=== PATIENT | female | born 1930 | race Caucasian/White ===

== ENCOUNTER 2017-07-13 14:13 | Emergency (ER) | payer MEDICARE, OTHER ==
[2017-07-13] MEDS ORDERED: Sodium Chloride 0.9% 10 ML Syringe FLUSH PRN (15:08)
[2017-07-13] MEDS ORDERED: Albuterol 0.083% 2.5 MG/3 ML Neb Soln NEB ONE (15:10)
--- NOTE | 2017-07-13 15:10 | EDM.PDOC ---
ED HPI GENERAL MEDICAL PROBLEM - General Chief Complaint: Respiratory Problem Stated Complaint: SOB, COUGH AND FEVER Time Seen by Provider: 07/13/17 15:00 Source of Information: Reports: Patient History Limitations: Reports: No Limitations - History of Present Illness INITIAL COMMENTS - FREE TEXT/NARRATIVE: 87 year old female presents for evaluation and treatment of chills, shortness of breath, cough and a fever. Symptoms started on Friday. Patient presented to the walk-in clinic today where she was instructed to come to us for further management and care. Reports she had a fever of 101.8 at the clinic and oxygen sats at 87% on room air. Current symptoms include fevers, chills, sore throat, headaches, cough and shortness of breath. Reports she is coughing up white sputum. No chest pain, ear pain, nausea or vomiting. Patient is visiting [place] from [place]. She will be here for the next week. No ill contacts. Patient reports she frequently gets bronchitis. Often treated with amoxicillin and steroids. Patient has an albuterol inhaler at home but did not bring it with her today. - Related Data Allergies Allergy/AdvReac Type Severity Reaction Status Date / Time Sulfa (Sulfonamide Allergy Cannot Verified 07/13/17 14:29 Antibiotics) Remember Home Meds: Home Meds Aspirin [Halfprin] 81 mg PO DAILY 07/13/17 [History] Biotin/Calcium Carbonate [Biotin 800 MCG] 1 tab PO DAILY 07/13/17 [History] Calcium Carbonate/Vitamin D3 [Calcium 1,000 + D3 Caplet] 1,200 mg PO DAILY 07/13 [History] Levothyroxine 75 mcg PO DAILY 07/13/17 [History] Metoprolol Succinate [Toprol XL] 50 mg PO DAILY 07/13/17 [History] Raloxifene HCl [Evista] 60 mg PO DAILY 07/13/17 [History] ED ROS GENERAL - Review of Systems Review Of Systems: See Below Constitutional: Reports: Fever, Chills, Weakness HEENT: Reports: Throat Pain. Denies: Ear Pain Respiratory: Reports: Shortness of Breath, Cough, Sputum Cardiovascular: Denies: Chest Pain GI/Abdominal: Denies: Nausea, Vomiting ED EXAM, GENERAL - Physical Exam Exam: See Below Exam Limited By: No Limitations General Appearance: Alert, WD/WN, No Apparent Distress Ears: Normal External Exam, Normal Canal, Hearing Grossly Normal, Normal TMs Nose: Normal Inspection Throat/Mouth: Normal Inspection, Normal Lips, Normal Oropharynx, Normal Voice, No Airway Compromise Neck: Normal Inspection Respiratory/Chest: No Respiratory Distress, Wheezing (diffuse expiratory). No: Rhonchi Cardiovascular: Normal Peripheral Pulses, Regular Rate, Rhythm, No Murmur Neurological: Alert, Oriented, Normal Cognition Psychiatric: Normal Affect, Normal Mood Skin Exam: Warm, Dry, Normal Color Course - Vital Signs Last Recorded V/S: Last Vital Signs Temp 36.7 C 07/13/17 14:20 Pulse 92 07/13/17 18:30 Resp 18 07/13/17 18:30 BP 154/65 H 07/13/17 18:30 Pulse Ox 90 L 07/13/17 18:30 - Orders/Labs/Meds Labs: Laboratory Tests 07/13/17 07/13/17 07/13/17 Range/Units 15:35 15:35 15:35 WBC 10.41 H (3.98-10.04) K/mm3 RBC 4.65 (3.98-5.22) M/mm3 Hgb 13.2 (11.2-15.7) gm/L Hct 39.3 (34.1-44.9) % MCV 84.5 (79.4-94.8) fl MCH 28.4 (25.6-32.2) pg MCHC 33.6 (32.2-35.5) g/dl RDW Std Deviation 41.7 (36.4-46.3) fL Plt Count 224 (182-369) K/mm3 MPV 10.7 (9.4-12.3) fl Neutrophils % (Manual) 71 H (40-60) % Band Neutrophils % 0 (0-10) % Lymphocytes % (Manual) 20 (20-40) % Atypical Lymphs % 0 % Monocytes % (Manual) 7 (2-10) % Eosinophils % (Manual) 2 (0.7-5.8) % Basophils % (Manual) 0 L (0.1-1.2) Platelet Estimate Adequate Plt Morphology Comment Normal RBC Morph Comment Normal Sodium 134 L (136-145) mEq/L Potassium 3.8 (3.5-5.1) mEq/L Chloride 96 L (98-107) mEq/L Carbon Dioxide 26 (21-32) mEq/L Anion Gap 15.8 H (5-15) BUN 13 (7-18) mg/dL Creatinine 0.7 (0.55-1.02) mg/dL Est Cr Clr Drug Dosing 35.85 mL/min Estimated GFR (MDRD) > 60 (>60) mL/min BUN/Creatinine Ratio 18.6 H (14-18) Glucose 94 (83-115) mg/dL Lactic Acid 1.7 (0.4-2.0) mmol/L Calcium 8.7 (8.5-10.1) mg/dL Total Bilirubin 1.2 H (0.2-1.0) mg/dL AST 26 (15-37) U/L ALT 16 (14-59) U/L Alkaline Phosphatase 49 (46-116) U/L C-Reactive Protein 4.4 H* (<1.0) mg/dL Total Protein 7.0 (6.4-8.2) g/dl Albumin 3.4 (3.4-5.0) g/dl Globulin 3.6 gm/dL Albumin/Globulin Ratio 0.9 L (1-2) Meds: Medications Discontinued Medications Generic Name Dose Route Start Last Admin Trade Name Freq PRN Reason Stop Dose Admin Albuterol 2.5 mg 07/13/17 15:10 07/13/17 15:59 Proventil Neb Soln NEB 07/13/17 15:11 2.5 mg ONETIME ONE Administration Sodium Chloride 10 ml 07/13/17 15:08 Saline Flush FLUSH ASDIRECTED PRN Keep Vein Open - Radiology Interpretation Free Text/Narrative:: Chest xray shows emphysematous changes. No acute infiltrate. Reviewed by myself and Dr. Monaco. - Re-Assessments/Exams Free Text/Narrative Re-Assessment/Exam: 07/13/17 18:46 I reviewed the xray and labs results with the patient. She is negative for influenza. She is staying here in town. I feel we can try out patinet treatment with antibiotics, albuterol and steroids. She is instructed to return to the ER if her symptoms change or worsen. She agrees with this treatment plan. Departure - Departure Time of Disposition: 18:14 Disposition: Home, Self-Care 01 Condition: Fair Clinical Impression: Bronchitis - Discharge Information Instructions: Acute Bronchitis, [id number] Referrals: PCP,None [Primary Care Provider] - Forms: ED Department Discharge Additional Instructions: Take the doxycycline as prescribed. 1 tab twice a day for 10 days. Prednisone 1 tab daily for 5 days. you will have 5 extra tabs Tessalon Perles 1 tab every 8 hours as needed for cough. Albuterol inhaler 1-2 puffs every 4-6 hours as needed for shortness of breath. rest. make sure you are drinking plenty of fluids. Follow up with your family care provider as soon as you are able to. Please return to the ER immediately if your symptoms change or worsen. Prescriptions given through [facility]. Doxycycline 100 mg twice a day 10 days Albuterol inhaler 1-2 puffs every 4-6 hours as needed for shortness of breath Tessalon Perles 1 cap 3 times a day as needed for cough Prednisone 20mg 1 tab daily for 5 days.
--- NOTE | 2017-07-14 07:14 | CR ---
Chest: Two views of the chest were obtained. Comparison: No previous study. Heart size is normal. Tortuous thoracic aorta is seen. No acute infiltrates are suspected. Lungs are hyperinflated compatible with emphysematous change. Mild compression deformity is seen within the mid to upper thoracic spine which is most likely old. Scoliosis is also present within the spine. Impression: 1. Emphysematous change. Mild compression deformity within the mid to upper thoracic spine. 2. Nothing acute is suspected on two-view chest x-ray. Diagnostic code #2
== END 2017-07-13 18:30 | disposition home or self-care (01) ==
LOC: JD.ED 14:13
DX: J40 Bronchitis, not specified as acute or chronic (principal); Z88.2 Allergy status to sulfonamides; Z79.82 Long term (current) use of aspirin; Z79.899 Other long term (current) drug therapy
CPT/HCPCS: 36415; 71020; 71020-26; 80053; 83605; 85025; 86140; 87040; 87070; 87205; 87804; 94640; 99284; 99285-25